=== PATIENT | male | born 1970 | race Two or more races ===

== ENCOUNTER 2024-12-20 06:55 | Inpatient (IN) | payer MEDICAID ==
[~2024-12-20] VITALS: Ht 177.8 cm; Wt 85.0 kg
[2024-12-20] VITALS (75 sets, daily range): BP systolic 32–119; BP diastolic 12–101; PULSE 71–114; RESP 0–28; TEMP 34.2–37.1; O2SAT 72–100
[2024-12-20] MEDS ORDERED: NOREPINEPHRINE 8MG/250ML PMX 250 ML IV ONE ×2 (07:09→07:24)
[2024-12-20] MEDS ORDERED: MIDAZOLAM HCL 2 MG/2 ML VIAL ONE (07:24)
[2024-12-20] MEDS ORDERED: LIDOCAINE HCL 1% 20ML VIAL ONE (07:24)
[2024-12-20] MEDS ORDERED: FENTANYL CITRATE/PF 50MCG/ML 2ML VIAL ONE (07:24)
[2024-12-20] MEDS ORDERED: HEPARIN 1000 UNITS/ML 10ML ONE (07:24)
[2024-12-20] MEDS ORDERED: IODIXANOL 320 MG/ML 150ML BOTTLE IV ONE (07:25)
[2024-12-20] MEDS ORDERED: ACETAMINOPHEN 650MG/20.3ML UDC NG PRN (07:30)
[2024-12-20] MEDS ORDERED: ACETAMINOPHEN 650MG SUPP PR PRN (07:30)
[2024-12-20] MEDS ORDERED: ETOMIDATE 2MG/ML 10ML VIAL IV ONE (07:31)
[2024-12-20] MEDS: HEPARIN 5000 UNITS/ML VIAL IV ONE (07:32)
[2024-12-20] MEDS ORDERED: EPINEPHRINE 0.1MG/ML (1:10,000) 10ML SYR ONE (07:36)
[2024-12-20] MEDS ORDERED: ATROPINE SULFATE 1MG/10ML SYR ONE (07:36)
[2024-12-20 07:41] LABS: BASOPHILS % 0.3 % (0.0-2.0); EOSINOPHILS % 0.7 % (0.0-5.0); HEMATOCRIT. 32.5 % (42.0-52.0); HEMOGLOBIN. 9.9 g/dL (14.0-18.0); LYMPHOCYTES % 23.2 % (20.0-50.0); MEAN CORPUSCULAR HEMOGLOBIN 26.8 pg (28.0-32.0); MEAN CORPUSCULAR HGB CONC 30.4 g/dL (31.0-37.0); MEAN CORPUSCULAR VOLUME 88.4 fL (80.0-94.0); MEAN PLATELET VOLUME 8.2 fl (7.4-10.4); NEUTROPHILS % 72.8 % (40.0-76.0); PLATELET 124 x1000/uL (130-400); RED BLOOD CELL COUNT 3.68 mill/uL (4.7-6.1); RED CELL DISTRIBUTION WIDTH 14.9 % (11.6-14.6); WHITE BLOOD COUNT 12.5 x1000/uL (4.5-11.0)
[2024-12-20] MEDS: ASPIRIN 325MG TABLET PO ONE (07:42)
[2024-12-20 07:47] LABS: CARBON DIOXIDE 16 mEq/L (21-32); CHLORIDE 107 mEq/L (98-107); POTASSIUM 4.9 mEq/L (3.5-5.1); SODIUM 140 mEq/L (136-145)
[2024-12-20 07:48] LABS: CALCIUM 9.2 mg/dL (8.7-10.4)
[2024-12-20 07:52] LABS: CREATININE 1.6 mg/dL (0.6-1.3); GLUCOSE 303 mg/dL (70-105)
[2024-12-20 07:53] LABS: UREA NITROGEN BLOOD 16 mg/dL (9-23)
[2024-12-20 07:54] LABS: ALANINE AMINOTRANSFERASE 442 IU/L (10-49); ALBUMIN 2.8 g/dL (3.2-4.8); ASPARTATE AMINOTRANSFERASE 519 IU/L (<34)
[2024-12-20 07:55] LABS: BILIRUBIN DIRECT < 0.1 mg/dL (<=3.0); BILIRUBIN TOTAL 0.2 mg/dL (0.1-1.0); PROTEIN TOTAL 4.4 g/dL (6.0-8.3)
[2024-12-20 08:00] LABS: PHOSPHORUS 10.3 mg/dL (2.5-4.9)
[2024-12-20 08:01] LABS: TROPONIN I HIGH SENSITIVITY 4260 ng/L (3.0-53)
[2024-12-20] MEDS ORDERED: DOPAMINE 400MG/250ML PREMIX 250 ML IV ONE (08:14)
[2024-12-20] MEDS ORDERED: ONDANSETRON HCL 4MG/2ML INJ IV PRN (08:45)
[2024-12-20] MEDS ORDERED: IPRATROPIUM/ALBUTEROL 0.5-3(2.5)MG/3ML NEB HHN PRN (08:45)
[2024-12-20] MEDS ORDERED: ACETAMINOPHEN 325MG TABLET PO PRN ×2 (08:45→09:00)
[2024-12-20] MEDS ORDERED: ATROPINE SULFATE 1MG/10ML SYR IV PRN (09:00)
[2024-12-20 10:10] LABS: BG BASE EXCESS -11.8 mmol/L (-2.0-3.0); BG CARBOXYHEMOGLOBIN 0.8 % (0.5-1.5); BG DEOXYHEMOGLOBIN 8.4 % (0.0-5.0); BG FRACTION INSPIRED OXYGEN 100; BG HCO3 ACT 17.7 mmol/L (21.0-28.0); BG METHEMOGLOBIN 0.1 % (0.5-1.5); BG OXYGEN SATURATION 91.5 % (94.0-98.0); BG OXYHEMOGLOBIN 90.7 % (94.0-98.0); BG PCO2 55.3 mmHg (35.0-48.0); BG PH 7.124 (7.350-7.450); BG PO2 76.4 mmHg (83.0-108.0); BG SAMPLE SITE ALINE; BG TOTAL HEMOGLOBIN 13.6 g/dL (13.5-17.5); BG VENT MODE VENT - AC
[2024-12-20] MEDS ORDERED: PHENYLEPHRINE 50MG/250ML PMX 250 ML IV PRN (10:15)
[2024-12-20 10:17] LABS: CLARITY URINE CLOUDY (CLEAR); COLOR URINE YELLOW (YELLOW); GLUCOSE URINE NEGATIVE (NEGATIVE); KETONES URINE NEGATIVE (NEGATIVE); LEUKOCYTE ESTERASE URINE NEGATIVE (NEGATIVE); NITRITE URINE NEGATIVE (NEGATIVE); OCCULT BLOOD URINE 1+ (NEGATIVE); PH URINE 5.5 (4.5-8.0); PROTEIN URINE 3+ (NEGATIVE); SPECIFIC GRAVITY URINE 1.031 (1.005-1.030); UROBILINOGEN URINE 0.2 E.U./dL (0.2-1.0)
[2024-12-20] MEDS: NOREPINEPHRINE 8MG/250ML PMX 250 ML IV PRN (10:24)
[2024-12-20] MEDS: SODIUM BICARBONATE 8.4% 50MEQ/50ML SYR IV SCH ×2 (10:25→20:47)
[2024-12-20] MEDS ORDERED: ENOXAPARIN 40MG/0.4ML SYR SUBCUT SCH (10:30)
[2024-12-20 11:02] LABS: *AMPHETAMINES SCREEN URINE PRESUMPTIVE POSITIVE (NEGATIVE); *BARBITURATES SCREEN URINE NEGATIVE (NEGATIVE); *BENZODIAZEPINES SCREEN URINE NEGATIVE (NEGATIVE); *COCAINE SCREEN URINE NEGATIVE (NEGATIVE); CANNABINOID URINE SCREEN NEGATIVE (NEGATIVE); ECSTASY MDMA SCREEN URINE CONF.TEST INDICATED (NEGATIVE); METHADONE URINE SCREEN NEGATIVE (NEGATIVE); OPIATES URINE SCREEN NEGATIVE (NEGATIVE); PHENCYCLIDINE URINE SCREEN PRESUMTIVE POSITIVE (NEGATIVE)
[2024-12-20 11:03] LABS: INR 1.2; PROTHROMBIN TIME 12.4 sec (9.6-11.0)
[2024-12-20] MEDS ORDERED: IPRATROPIUM/ALBUTEROL 0.5-3(2.5)MG/3ML NEB HHN SCH (12:00)
[2024-12-20] MEDS: AZITHROMYCIN 500 MG TABLET PO SCH (12:08)
[2024-12-20] MEDS: CEFTRIAXONE 1GM/50ML 50 ML IV SCH (12:09)
[2024-12-20] MEDS: ENOXAPARIN 100MG/ML SYR SUBCUT SCH ×2 (12:09→22:40)
[2024-12-20 12:25] LABS: BG DEOXYHEMOGLOBIN 1.9 % (0.0-5.0); BG FRACTION INSPIRED OXYGEN 100; BG HCO3 ACT 20.7 mmol/L (21.0-28.0); BG METHEMOGLOBIN 0.3 % (0.5-1.5); BG OXYGEN SATURATION 98.1 % (94.0-98.0); BG OXYHEMOGLOBIN 96.8 % (94.0-98.0); BG PH 7.234 (7.350-7.450); BG PO2 113.6 mmHg (83.0-108.0); BG TOTAL HEMOGLOBIN 14.2 g/dL (13.5-17.5); BG VENT MODE VENT - AC
[2024-12-20 12:49] LABS: MUCUS URINE TRACE /lpf (NONE/TRACE)
[2024-12-20 12:52] LABS: CALCIUM OXALATE CRYSTALS URINE 1+ /lpf; SQUAMOUS EPITHELIAL CELL URINE RARE /lpf (RARE/1+)
[2024-12-20 12:54] LABS: BACTERIA URINE TRACE
[2024-12-20] MEDS: DOPAMINE 400MG/250ML PREMIX 250 ML IV PRN (14:06)
[2024-12-20 15:01] LABS: D-DIMER > 35.20 mg/L FEU (<0.50)
[2024-12-20 15:44] LABS: BG BASE EXCESS -7.2 mmol/L (-2.0-3.0); BG CARBOXYHEMOGLOBIN 0.5 % (0.5-1.5); BG DEOXYHEMOGLOBIN 5.5 % (0.0-5.0); BG FRACTION INSPIRED OXYGEN 100; BG HCO3 ACT 19.6 mmol/L (21.0-28.0); BG METHEMOGLOBIN 0.3 % (0.5-1.5); BG OXYGEN SATURATION 94.5 % (94.0-98.0); BG OXYHEMOGLOBIN 93.7 % (94.0-98.0); BG PCO2 44.1 mmHg (35.0-48.0); BG PH 7.266 (7.350-7.450); BG PO2 77.7 mmHg (83.0-108.0); BG SAMPLE SITE ALINE; BG TOTAL HEMOGLOBIN 14.8 g/dL (13.5-17.5); BG VENT MODE VENT - AC
[2024-12-20] MEDS: AMIODARONE 150MG/100ML D5W 100 ML IV NR (16:23)
[2024-12-20 16:34] LABS: CHLORIDE 108 mEq/L (98-107); POTASSIUM 3.7 mEq/L (3.5-5.1); SODIUM 145 mEq/L (136-145)
[2024-12-20 16:35] LABS: CALCIUM 8.5 mg/dL (8.7-10.4); CARBON DIOXIDE 24 mEq/L (21-32)
[2024-12-20 16:40] LABS: UREA NITROGEN BLOOD 30 mg/dL (9-23)
[2024-12-20 16:42] LABS: PHOSPHORUS 2.2 mg/dL (2.5-4.9)
[2024-12-20] MEDS: NOREPINEPHRINE 32 MG in DEXT 5% WATER 218 ML IV PRN (16:49)
[2024-12-20] MEDS: VASOPRESSIN 20 UNIT in SODIUM CHLORIDE 0.9% 99 ML IV PRN (16:55)
[2024-12-20 16:58] LABS: CREATININE 2.5 mg/dL (0.6-1.3); GLUCOSE 126 mg/dL (70-105)
[2024-12-20] MEDS: EPINEPHRINE 10 MG in SODIUM CHLORIDE 0.9% 240 ML IV PRN (17:17)
[2024-12-20] MEDS: PHENYLEPHRINE 100 MG in DEXT 5% WATER 240 ML IV PRN (17:17)
[2024-12-20 17:45] LABS: BASOPHILS % 0.4 % (0.0-2.0); DIFFERENTIAL COMMENT 0; HEMATOCRIT. 45.2 % (42.0-52.0); HEMOGLOBIN. 13.8 g/dL (14.0-18.0); LYMPHOCYTES % 11.3 % (20.0-50.0); MEAN CORPUSCULAR HEMOGLOBIN 26.9 pg (28.0-32.0); MEAN CORPUSCULAR HGB CONC 30.5 g/dL (31.0-37.0); MEAN CORPUSCULAR VOLUME 88.2 fL (80.0-94.0); MEAN PLATELET VOLUME 8.6 fl (7.4-10.4); MONOCYTES % 5.4 % (2.0-8.0); NEUTROPHILS % 81.9 % (40.0-76.0); PLATELET 194 x1000/uL (130-400); RED BLOOD CELL COUNT 5.12 mill/uL (4.7-6.1); RED CELL DISTRIBUTION WIDTH 15.4 % (11.6-14.6); WHITE BLOOD COUNT 10.3 x1000/uL (4.5-11.0)
[2024-12-20] MEDS: AMIODARONE 360MG/200ML 200 ML IV SCH (18:04)
[2024-12-20] MEDS: SODIUM BICARBONATE 100 MEQ in SODIUM CHLORIDE 0.45% 900 ML IV SCH (18:45)
[2024-12-20 20:38] LABS: BG BASE EXCESS -20.3 mmol/L (-2.0-3.0); BG CARBOXYHEMOGLOBIN 0.8 % (0.5-1.5); BG DEOXYHEMOGLOBIN 3.1 % (0.0-5.0); BG FRACTION INSPIRED OXYGEN 100; BG HCO3 ACT 9.5 mmol/L (21.0-28.0); BG METHEMOGLOBIN 0.3 % (0.5-1.5); BG OXYGEN SATURATION 96.9 % (94.0-98.0); BG OXYHEMOGLOBIN 95.8 % (94.0-98.0); BG PCO2 36.2 mmHg (35.0-48.0); BG PH 7.039 (7.350-7.450); BG PO2 106.5 mmHg (83.0-108.0); BG SAMPLE SITE ALINE; BG TOTAL HEMOGLOBIN 13.4 g/dL (13.5-17.5); BG VENT MODE VENT - AC
[2024-12-20] MEDS: EPINEPHRINE 20 MG in SODIUM CHLORIDE 0.9% 480 ML IV PRN (20:38)
[2024-12-21] VITALS (22 sets, daily range): BP systolic 39–89; BP diastolic 14–64; PULSE 64–88; RESP 23–41; TEMP 35.3–35.9; O2SAT 98
[2024-12-21 00:09] LABS: BG BASE EXCESS -23.8 mmol/L (-2.0-3.0); BG CARBOXYHEMOGLOBIN 1.4 % (0.5-1.5); BG DEOXYHEMOGLOBIN 1.8 % (0.0-5.0); BG FRACTION INSPIRED OXYGEN 100; BG HCO3 ACT 7.8 mmol/L (21.0-28.0); BG METHEMOGLOBIN 0.3 % (0.5-1.5); BG OXYGEN SATURATION 98.2 % (94.0-98.0); BG OXYHEMOGLOBIN 96.5 % (94.0-98.0); BG PCO2 37.6 mmHg (35.0-48.0); BG PH 6.936 (7.350-7.450); BG PO2 133.8 mmHg (83.0-108.0); BG TOTAL HEMOGLOBIN 12.6 g/dL (13.5-17.5); BG VENT MODE VENT - AC
[2024-12-21] MEDS: SODIUM BICARBONATE 8.4% 50MEQ/50ML SYR IV NR (00:25)
[2024-12-21] MEDS: DOPAMINE 800MG PREMIX (DOUBLE) 250 ML IV PRN (01:19)
[2024-12-21 05:10] LABS: BG BASE EXCESS -22.8 mmol/L (-2.0-3.0); BG DEOXYHEMOGLOBIN 20.7 % (0.0-5.0); BG FRACTION INSPIRED OXYGEN 100; BG HCO3 ACT 10.9 mmol/L (21.0-28.0); BG METHEMOGLOBIN 0.3 % (0.5-1.5); BG OXYGEN SATURATION 78.8 % (94.0-98.0); BG PCO2 64.9 mmHg (35.0-48.0); BG PH 6.842 (7.350-7.450); BG PO2 55.4 mmHg (83.0-108.0); BG SAMPLE SITE ALINE; BG TOTAL HEMOGLOBIN 10.9 g/dL (13.5-17.5); BG VENT MODE VENT - AC
[2024-12-21] MEDS ORDERED: ATROPINE SULFATE 1MG/10ML SYR ONE ×2 (08:08→08:14)
[2024-12-21] MEDS ORDERED: PANTOPRAZOLE SODIUM 40 MG/VIAL IV SCH (09:00)
== END 2024-12-21 05:21 | DRG 190 ==
LOC: ER 06:55 → EDBEDREQ 07:33 → EDBD 07:59 → CVICU 07:59 → EDBEDREQ 08:09 → ENRESERV 08:10
PROVIDERS: ADMIT Internal Medicine; ATTEND Internal Medicine
PROC: 5A12012 Performance of Cardiac Output, Single, Manual (ICD-10-PCS; principal; 2024-12-20)
PROC: 5A1935Z Respiratory Ventilation, Less than 24 Consecutive Hours (ICD-10-PCS; 2024-12-20)
PROC: 0BH17EZ Insertion of Endotracheal Airway into Trachea, Via Natural or Artificial Opening (ICD-10-PCS; 2024-12-20)
PROC: 4A023N7 Measurement of Cardiac Sampling and Pressure, Left Heart, Percutaneous Approach (ICD-10-PCS; 2024-12-20)
PROC: B211YZZ Fluoroscopy of Multiple Coronary Arteries using Other Contrast (ICD-10-PCS; 2024-12-20)
PROC: B215YZZ Fluoroscopy of Left Heart using Other Contrast (ICD-10-PCS; 2024-12-20)
PROC: B41FYZZ Fluoroscopy of Right Lower Extremity Arteries using Other Contrast (ICD-10-PCS; 2024-12-20)
PROC: B41CYZZ Fluoroscopy of Pelvic Arteries using Other Contrast (ICD-10-PCS; 2024-12-20)
PROC: 06HY33Z Insertion of Infusion Device into Lower Vein, Percutaneous Approach (ICD-10-PCS; 2024-12-20)
PROC: B54BZZA Ultrasonography of Right Lower Extremity Veins, Guidance (ICD-10-PCS; 2024-12-20)
DX: I21.19 ST elevation (STEMI) myocardial infarction involving other coronary artery of inferior wall (principal); G93.6 Cerebral edema; I46.9 Cardiac arrest, cause unspecified; J96.01 Acute respiratory failure with hypoxia; K72.00 Acute and subacute hepatic failure without coma; D69.6 Thrombocytopenia, unspecified; E83.39 Other disorders of phosphorus metabolism; E88.09 Other disorders of plasma-protein metabolism, not elsewhere classified; E83.41 Hypermagnesemia; N17.9 Acute kidney failure, unspecified; I25.10 Atherosclerotic heart disease of native coronary artery without angina pectoris; D72.829 Elevated white blood cell count, unspecified; D64.9 Anemia, unspecified; J96.02 Acute respiratory failure with hypercapnia; G93.1 Anoxic brain damage, not elsewhere classified; E87.4 Mixed disorder of acid-base balance; Z95.5 Presence of coronary angioplasty implant and graft; Z79.82 Long term (current) use of aspirin
CPT/HCPCS: 31500; 36415; 36600; 36620; 71045; 80048; 80076; 80305; 81003; 82375; 82805; 82962; 83735; 84100; 84484; 85025; 85379; 86850; 86900; 87070; 87493; 92950; 93005; 93306; 93458; 93970; 94002; 94003; 94070; 99291; C1726; C1769; C1887; C1893; J0282; J0461; J0696; J1265; J1644; J1650; J2003; J2250; J2371; J3010; J3490; J7040; J7050; J7060; Q9967